=== PATIENT | male | born 1955 | race Caucasian/White ===

== ENCOUNTER 2016-10-09 11:42 | Inpatient (IN) | payer OTHER ==
[~2016-10-09] VITALS: Ht 172.7 cm; Wt 68.0 kg
[2016-10-09 11:42] VITALS: BP_SYST 153
[2016-10-09] MEDS ORDERED: NACL 0.9% 1,000 ML IV ONE (11:55)
[2016-10-09] MEDS ORDERED: MORPHINE 2 MG/ML INJ. SYRINGE IVP ONE (12:00)
[2016-10-09] MEDS ORDERED: ONDANSETRON HCL 4 MG/2 ML VIAL IVP ONE ×2 (12:00→15:40)
[2016-10-09 12:19] LABS: BASOPHILS % (AUTO) 0.5 % (0.0-2.0); EOSINOPHILS % (AUTO) 0.2 % (0.0-4.0); HEMOGLOBIN 14.8 g/dL (14.0-18.0); LYMPHOCYTES # (AUTO) 1.1 K/uL (1.0-5.5); LYMPHOCYTES % (AUTO) 13.2 % (20.5-51.5); MEAN CORPUSCULAR HEMOGLOBIN 32 pg (27-31); MEAN CORPUSCULAR HGB CONC 33 % (32-36); MEAN CORPUSCULAR VOLUME 97 fL (79.0-98.0); MONOCYTES # (AUTO) 0.4 K/uL (0.0-1.0); MONOCYTES % (AUTO) 4.6 % (1.7-9.3); NEUTROPHILS # (AUTO) 6.5 K/uL (1.8-7.7); NEUTROPHILS % (AUTO) 81.5 % (40.0-70.0); PLATELET COUNT (AUTO) 259 K/uL (130-430); RED BLOOD CELL COUNT(AUTO) 4.63 MIL/uL (4.2-6.2)
[2016-10-09 12:24] LABS: CALCIUM 8.3 mg/dL (8.4-11.0); POTASSIUM 4.2 mmol/L (3.5-5.1)
[2016-10-09 12:28] LABS: PROTHROMBIN TIME 10.4 SECS (9.5-12.5)
[2016-10-09 12:30] LABS: TOTAL BILIRUBIN 0.4 mg/dL (0.0-1.0)
[2016-10-09] MEDS ORDERED: MORPHINE 4 MG/ML INJ. SYRINGE IVP ONE (12:30)
[2016-10-09 12:31] LABS: ALBUMIN 3.6 g/dL (3.4-4.8); TOTAL PROTEIN, SERUM 6.9 g/dL (6.4-8.3)
[2016-10-09] MEDS ORDERED: VANCOMYCIN HCL 1,000 MG in NS 250 ML IV ONE (13:45)
[2016-10-09] MEDS ORDERED: D5NS 1,000 ML IV ONE (14:15)
[2016-10-09] MEDS ORDERED: VANCOMYCIN HCL 1000 MG/VIAL IV ONE ×2 (14:25→15:41)
[2016-10-09 15:08] VITALS: BP_SYST 136
[2016-10-09 15:14] VITALS: BP_SYST 136
[2016-10-09] MEDS ORDERED: ROCURONIUM BROMIDE 10 MG/ML (ZEMURON) IV ONE (15:40)
[2016-10-09] MEDS ORDERED: KETOROLAC TROMETHAMINE 30 MG VIAL IVP ONE (15:40)
[2016-10-09] MEDS ORDERED: PROPOFOL 200MG/ 20ML VIAL (DIPRIVAN) IV ONE (15:40)
[2016-10-09] MEDS ORDERED: NS IRRIG SOLN 1000 ML IR ONE (15:40)
[2016-10-09] MEDS ORDERED: MIDAZOLAM HCL 5 MG/5 ML VIAL IVP ONE (15:40)
[2016-10-09] MEDS ORDERED: LR 1,000 ML IV.SOLN IV ONE (15:40)
[2016-10-09] MEDS ORDERED: DEXAMETHASONE SOD PHOSPHATE 4 MG/ML VIAL IVP ONE (15:40)
[2016-10-09] MEDS ORDERED: fentaNYL CITRATE 250 MCG/5 ML AMP IV ONE (15:40)
[2016-10-09] MEDS ORDERED: CEFAZOLIN 1 GM IVPB PREMIX 50 ML IV ONE (15:40)
[2016-10-09] MEDS ORDERED: SEVOFLURANE 15 MIN GAS INH ONE (15:40)
[2016-10-09] MEDS ORDERED: BUPIVACAINE /EPINEPHRINE/PF 0.5% 30 ML VIAL INJ ONE (15:40)
[2016-10-09 16:11] LABS: BILIRUBIN,URINE NEGATIVE (NEGATIVE); BLOOD, URINE NEGATIVE (NEGATIVE); CLARITY/URINE CLEAR (CLEAR); COLOR,URINE YELLOW (YELLOW); GLUCOSE,URINE NEGATIVE (NEGATIVE); KETONES,URINE 1+ (NEGATIVE); LEUKOCYTE ESTERASE ,URINE NEGATIVE (NEGATIVE); NITRITE, URINE NEGATIVE (NEGATIVE); PROTEIN URINE NEGATIVE (NEGATIVE); UROBILINOGEN,URINE 0.2 (0.2-1.0)
[2016-10-09] MEDS ORDERED: LORazepam 2 MG/ML VIAL IVP PRN (16:30)
[2016-10-09] MEDS ORDERED: ZOLPIDEM TARTRATE 5 MG TABLET PO PRN (16:30)
[2016-10-09] MEDS ORDERED: ONDANSETRON HCL 4 MG/2 ML VIAL IVP PRN (16:30)
[2016-10-09] MEDS ORDERED: POTASSIUM CHLORIDE 10 MEQ TAB.PRT.SR PO PRN (16:30)
[2016-10-09] MEDS ORDERED: MORPHINE 2 MG/ML INJ. SYRINGE IVP PRN (16:30)
[2016-10-09] MEDS ORDERED: DOCUSATE SODIUM 100 MG CAPSULE PO PRN (16:30)
[2016-10-09] MEDS ORDERED: MAGNESIUM SULFATE 50 ML IV PRN (16:30)
[2016-10-09] MEDS ORDERED: LR 1,000 ML IV SCH (16:48)
[2016-10-09] MEDS ORDERED: MEPERIDINE HCL/PF 25 MG/ML DISP.SYRIN IVP PRN (17:00)
[2016-10-09] MEDS ORDERED: HYDROmorphone 1 MG INJ. 1 MG/ML AMPUL IVP PRN (17:00)
[2016-10-09] MEDS ORDERED: HYDROmorphone 2 MG/ML VIAL IVP PRN ×2 (17:00)
[2016-10-09 17:50] VITALS: BP_SYST 147
[2016-10-09 20:17] VITALS: BP_SYST 118
[2016-10-09] MEDS: MORPHINE 2 MG/ML INJ. SYRINGE IVP PRN (22:40)
[2016-10-10 00:12] VITALS: BP_SYST 124
[2016-10-10 04:08] VITALS: BP_SYST 103
[2016-10-10 06:34] LABS: BASOPHILS % (AUTO) 0.1 % (0.0-2.0); MEAN CORPUSCULAR HGB CONC 34 % (32-36)
[2016-10-10 06:47] LABS: HEMOGLOBIN 12.9 g/dL (14.0-18.0); LYMPHOCYTES # (AUTO) 0.6 K/uL (1.0-5.5); LYMPHOCYTES % (AUTO) 4.9 % (20.5-51.5); MEAN CORPUSCULAR HEMOGLOBIN 33 pg (27-31); MEAN CORPUSCULAR VOLUME 98 fL (79.0-98.0); MONOCYTES % (AUTO) 7.6 % (1.7-9.3); NEUTROPHILS % (AUTO) 87.4 % (40.0-70.0); PLATELET COUNT (AUTO) 206 K/uL (130-430); RED BLOOD CELL COUNT(AUTO) 3.87 MIL/uL (4.2-6.2); RED CELL DISTRIBUTION WIDTH 13.3 % (9.0-15.0); WHITE BLOOD COUNT (AUTO) 12.6 K/uL (4.8-10.8)
[2016-10-10 06:51] LABS: CREATININE 0.97 mg/dL (0.55-1.30); POTASSIUM 4.4 mmol/L (3.5-5.1)
[2016-10-10 08:00] VITALS: BP_SYST 112
[2016-10-10] MEDS: ACETAMINOPHEN 325 MG TABLET PO PRN ×2 (09:22→20:12)
[2016-10-10 13:04] VITALS: BP_SYST 117
[2016-10-10] MEDS: MORPHINE 2 MG/ML INJ. SYRINGE IVP PRN ×2 (15:56→22:03)
[2016-10-10 17:06] VITALS: BP_SYST 123
[2016-10-10 20:00] VITALS: BP_SYST 118
[2016-10-11 00:33] VITALS: BP_SYST 116
[2016-10-11 04:36] VITALS: BP_SYST 119
[2016-10-11 06:38] LABS: CALCIUM 8.1 mg/dL (8.4-11.0); CREATININE 0.93 mg/dL (0.55-1.30); POTASSIUM 3.8 mmol/L (3.5-5.1)
[2016-10-11 06:48] LABS: BASOPHILS % (AUTO) 0.4 % (0.0-2.0); EOSINOPHILS # (AUTO) 0.1 K/uL (0.0-0.4); HEMATOCRIT 38.6 % (36-54); HEMOGLOBIN 13.1 g/dL (14.0-18.0); LYMPHOCYTES # (AUTO) 1.6 K/uL (1.0-5.5); MEAN CORPUSCULAR HEMOGLOBIN 33 pg (27-31); MEAN CORPUSCULAR HGB CONC 34 % (32-36); MEAN CORPUSCULAR VOLUME 98 fL (79.0-98.0); MONOCYTES # (AUTO) 0.9 K/uL (0.0-1.0); MONOCYTES % (AUTO) 8.7 % (1.7-9.3); NEUTROPHILS # (AUTO) 7.5 K/uL (1.8-7.7); NEUTROPHILS % (AUTO) 73.9 % (40.0-70.0); PLATELET COUNT (AUTO) 210 K/uL (130-430); RED BLOOD CELL COUNT(AUTO) 3.95 MIL/uL (4.2-6.2); RED CELL DISTRIBUTION WIDTH 13.4 % (9.0-15.0); WHITE BLOOD COUNT (AUTO) 10.1 K/uL (4.8-10.8)
[2016-10-11] MEDS: MORPHINE 2 MG/ML INJ. SYRINGE IVP PRN ×2 (06:57→11:04)
[2016-10-11 08:00] VITALS: BP_SYST 112
[2016-10-11 11:34] VITALS: BP_SYST 123
[2016-10-11 12:43] VITALS: BP_SYST 123
== END 2016-10-11 13:00 | disposition home or self-care (01) | DRG 352 ==
LOC: SED 11:42 → SMU 14:01
PROVIDERS: ADMIT General Practice; ATTEND General Practice
PROC: 0YU50JZ Supplement Right Inguinal Region with Synthetic Substitute, Open Approach (ICD-10-PCS; principal; 2016-10-09 15:00)
DX: K40.30 Unilateral inguinal hernia, with obstruction, without gangrene, not specified as recurrent (principal); N50.811 Right testicular pain
CPT/HCPCS: 36415; 80048; 80053; 81003; 83690-TC; 83735-TC; 85025; 85610-TC; 85730-TC; 87081; 88302; 93005; 96365; 96375; 96376; 99285; C1781; J0690; J1100; J1885; J2250; J2270; J2405; J2704; J3010; J3370; J3490; J7030; J7060; J7120